=== PATIENT | male | born 1975 | race Two or more races ===

== ENCOUNTER 2016-07-06 12:57 | Emergency (ER) | payer OTHER ==
[2016-07-06 13:08] VITALS: BP 129/75; PULSE 73; TEMP 97.9; BMI 22.5
[2016-07-06] MEDS ORDERED: KETOROLAC TROMETHAMINE 60 MG/2 ML VIAL IM ONE (14:34)
[2016-07-06] MEDS ORDERED: KETOROLAC TROMETHAMINE 60 MG/2 ML VIAL ONE (14:38)
--- NOTE | 2016-07-06 14:51 | PDOC ---
History of Present Illness - General Chief Complaint: Back Pain Stated Complaint: BACK PAIN Time Seen by Provider: 07/06/16 14:12 - History of Present Illness Initial Comments: 07/06/16 14:35 CHIEF COMPLAINT: back pain HISTORY OF PRESENT ILLNESS: 40 yo M with recent hx of pneumonia [facility] to [facility] with new onset back pain x 1 day. 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 Patient reports "just getting over pneumonia for the last month" and that he was coughing "all the time." He denies any loss of bowel or bladder function, any urinary changes, loss of sensation or tingling to extremities. No recent travel or sick contacts. PAST MEDICAL HISTORY: Denies past medical history FAMILY HISTORY: Denies SOCIAL HISTORY: Lives at home with family. 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 Current smoker, 8-10 cigs daily. 1-2 beers nightly. Denies illicit drug use. SURGICAL HISTORY: Denies ALLERGIES: No known drug allergies REVIEW OF SYSTEMS General/Constitutional: Denies fever or chills. Denies weakness, weight change. HEENT: Denies change in vision. Denies ear pain or discharge. Denies sore throat. Cardiovascular: Denies chest pain or shortness of breath. Respiratory: Denies cough, wheezing, or hemoptysis. Gastrointestinal: Denies nausea, vomiting, diarrhea or constipation. Denies rectal bleeding. Genitourinary: Denies dysuria, frequency, or change in urination. Musculoskeletal: Back pain. Skin and breasts: Denies rash or easy bruising. PHYSICAL EXAM General Appearance: Well-appearing, appropriately dressed. No apparent distress , no intoxication. HEENT: EOMI, PERRLA. Neck: No midline tenderness to cervical spine. Supple. Trachea midline. No tenderness, rigidity. Respiratory/Chest: Lungs CTAB. Cardiovascular: RRR. S1, S2. Vascular Pulses: Dorsalis-Pedis (R): 2+, Dorsalis-Pedis (L): 2+ Gastrointestinal/Abdominal: Normal bowel sounds. Abdomen soft, non-distended. Musculoskeletal/Extremities: Tenderness to left middle back, worse on palpation and with movement of left arm. No midline tenderness to lumbar or thoracic spine. Pelvis Stable. No CVA tenderness. No tenderness to extremities, pedal edema, swelling, erythema or deformity. Integumentary: Appropriate color, dry, warm. No cyanosis, erythema, jaundice or rash Neurologic: press tender II-XII intact. Fully oriented, alert. Appropriate mood/affect. Motor strength 5/5. No appreciable EOM palsy, facial droop or sensory deficit. Past History - Past Medical History Allergies/Adverse Reactions: Allergies Allergy/AdvReac Type Severity Reaction Status Date / Time No Known Allergies Allergy Verified 07/06/16 13:05 Home Medications: Ambulatory Orders Diazepam [Valium] 5 mg PO Q8H PRN #9 tablet MDD 3 tabs 07/06/16 Naproxen 250 mg PO BID #14 tablet 07/06/16 Suicide Attempt (Hx): No Other medical history: denies - Psycho/Social/Smoking Cessation Hx Suicidal Ideation: No Smoking Status: Yes Smoking History: Current every day smoker Number of Cigarettes Smoked Daily: 10 Information on smoking cessation initiated: No 'Breaking Loose' booklet given: 06/14/15 Hx Alcohol Use: No Drug/Substance Use Hx: No Substance Use Type: None *Physical Exam - Vital Signs Last Vital Signs Temp Pulse Resp BP Pulse Ox 97.9 F 73 16 129/75 99 07/06/16 13:05 07/06/16 13:05 07/06/16 13:05 07/06/16 13:05 07/06/16 13:05 Medical Decision Making - Medical Decision Making 07/06/16 14:54 40 yo M with no significant PMH presents [facility] with new onset left back pain History and clinical presentation consistent with muscle spasm. -60 mg Toradol IM Patient states he would like to go back to work and requests not to take medication that will make him drowsy at this time. -250 mg Naproxen bid -5 mg Valim PRN pain Advised patient to take medication as prescribed and follow up with orthopedics within the next week for further evaluation and possible physical therapy or MRI. Advised patient of signs and symptoms for return to ED. Patient verbalized understanding and agrees to plan. *DC/Admit/Observation/Transfer Diagnosis at time of Disposition: Back muscle spasm - Discharge Dispostion Disposition: HOME Condition at time of disposition: Stable Admit: No - Prescriptions Prescriptions: Naproxen 250 mg PO BID #14 tablet Diazepam [Valium] 5 mg PO Q8H PRN #9 tablet MDD 3 tabs PRN Reason: Back Pain - Referrals Referrals: Kylah Robb MD [Primary Care Provider] - Glen Dasilva MD [Staff Physician] - - Patient Instructions Printed Discharge Instructions: DI for Low Back Pain Additional Instructions: Please take medications as prescribed. Please follow-up with orthopedics as discussed. If you experience any sudden severe pain, loss of sensation, numbness or tingling to legs, bowel or bladder dysfunction, nausea, vomiting, diarrhea or any new or worsening symptoms please return to the
== END 2016-07-06 15:13 | disposition home or self-care (01) ==
LOC: JER 12:57
PROC: 3E0233Z Introduction of Anti-inflammatory into Muscle, Percutaneous Approach (ICD-10-PCS; principal; 2016-07-06)
DX: M62.830 Muscle spasm of back (principal); F17.210 Nicotine dependence, cigarettes, uncomplicated
CPT/HCPCS: 99281-25

== ENCOUNTER 2016-11-07 17:57 | Emergency (ER) | payer OTHER ==
--- NOTE | 2016-11-07 18:06 | PDOC ---
Rapid Medical Evaluation Time Seen by Provider: 11/07/16 18:06 Medical Evaluation: Allergies Allergy/AdvReac Type Severity Reaction Status Date / Time No Known Allergies Allergy Verified 07/06/16 13:05 11/07/16 18:06 Healthy 41 year old male presenting with right hand pain since yesterday after dog started running and leash wrapped around hand, causing hyperextension of fifth digit. -Right hand xray -To FT for further evaluation
[2016-11-07] MEDS ORDERED: IBUPROFEN 600 MG TABLET (FP) PO ONE (18:08)
[2016-11-07 18:09] VITALS: BP 134/75; PULSE 74; TEMP 98; BMI 22.0
--- NOTE | 2016-11-07 19:02 | PDOC ---
History of Present Illness - General Chief Complaint: Injury Stated Complaint: HAND INJURY Time Seen by Provider: 11/07/16 18:06 History Source: Patient Exam Limitations: No Limitations - History of Present Illness Initial Comments: 11/07/16 19:01 41 yr male with injury to right fifth digit yesterday. Past History - Past Medical History Allergies/Adverse Reactions: Allergies Allergy/AdvReac Type Severity Reaction Status Date / Time No Known Allergies Allergy Verified 11/07/16 18:06 Home Medications: Ambulatory Orders Diazepam [Valium] 5 mg PO Q8H PRN #9 tablet MDD 3 tabs 07/06/16 Naproxen 250 mg PO BID #14 tablet 07/06/16 Suicide Attempt (Hx): No Other medical history: NONE - Psycho/Social/Smoking Cessation Hx Suicidal Ideation: No Smoking Status: Yes Smoking History: Current every day smoker Have you smoked in the past 12 months: Yes Number of Cigarettes Smoked Daily: 4 Information on smoking cessation initiated: Yes 'Breaking Loose' booklet given: 11/07/16 Hx Alcohol Use: Yes Drug/Substance Use Hx: Yes (BRIDGET) Substance Use Type: None *Physical Exam - Vital Signs Last Vital Signs Temp Pulse Resp BP Pulse Ox 98.0 F 74 18 134/75 100 11/07/16 18:07 11/07/16 18:07 11/07/16 18:07 11/07/16 18:07 11/07/16 18:07 ED Treatment Course - Medications Given in the ED: ED Medications Discontinued Medications Generic Name Dose Route Start Last Admin Trade Name Freq PRN Reason Stop Dose Admin Ibuprofen 600 mg 11/07/16 18:08 11/07/16 18:12 Motrin - PO 11/07/16 18:09 600 mg ONCE ONE Administration *DC/Admit/Observation/Transfer Diagnosis at time of Disposition: Finger injury Qualifiers: Encounter type: initial encounter Laterality: right Qualified Code(s): S69.91XA - Unspecified injury of right wrist, hand and finger(s), initial encounter - Discharge Dispostion Disposition: HOME Condition at time of disposition: Good - Referrals Referrals: Kylah Robb MD [Primary Care Provider] - Hesham Carroll MD [Staff Physician] - - Patient Instructions Additional Instructions: keep the finger serafin taped together at all times for the next 3-4 days follow with the orthopedist if pain worsens or persists take motrin as needed for any pain
--- NOTE | 2016-11-07 19:53 | PDOC ---
History of Present Illness - General Chief Complaint: Injury Stated Complaint: HAND INJURY Time Seen by Provider: 11/07/16 18:06 History Source: Patient - History of Present Illness Occurred: reports: yesterday Upper Extremity Pain Location: right: 4th finger, 5th finger Past History - Past Medical History Allergies/Adverse Reactions: Allergies Allergy/AdvReac Type Severity Reaction Status Date / Time No Known Allergies Allergy Verified 11/07/16 18:06 Home Medications: Ambulatory Orders Diazepam [Valium] 5 mg PO Q8H PRN #9 tablet MDD 3 tabs 07/06/16 Naproxen 250 mg PO BID #14 tablet 07/06/16 Suicide Attempt (Hx): No Other medical history: NONE - Psycho/Social/Smoking Cessation Hx Suicidal Ideation: No Smoking Status: Yes Smoking History: Current every day smoker Have you smoked in the past 12 months: Yes Number of Cigarettes Smoked Daily: 4 Information on smoking cessation initiated: Yes 'Breaking Loose' booklet given: 11/07/16 Hx Alcohol Use: Yes Drug/Substance Use Hx: Yes (BRIDGET) Substance Use Type: None Review of Systems - Review of Systems Musculoskeletal: Yes: Joint Pain, Joint Swelling *Physical Exam - Vital Signs Last Vital Signs Temp Pulse Resp BP Pulse Ox 98.0 F 74 18 134/75 100 11/07/16 18:07 11/07/16 18:07 11/07/16 18:07 11/07/16 18:07 11/07/16 18:07 - Physical Exam General Appearance: Yes: Appropriately Dressed. No: Apparent Distress HEENT: positive: Normal Voice Neck: positive: Supple Respiratory/Chest: negative: Respiratory Distress Musculoskeletal: positive: Other Extremity: positive: Swelling (mild swelling over R 4th and 5th MCP, 5th>4th, no deformity otherwise) Integumentary: positive: Dry, Warm Neurologic: positive: Fully Oriented, Alert, Normal Mood/Affect ED Treatment Course - Medications Given in the ED: ED Medications Discontinued Medications Generic Name Dose Route Start Last Admin Trade Name Freq PRN Reason Stop Dose Admin Ibuprofen 600 mg 11/07/16 18:08 11/07/16 18:12 Motrin - PO 11/07/16 18:09 600 mg ONCE ONE Administration Medical Decision Making - Medical Decision Making 11/07/16 19:51 41-year-old male, no significant history, here with right fourth and fifth digit pain and swelling status post injury yesterday. Patient states while walking his dog, leash got caught between finger web of right fourth and fifth digit, causing hyperextension of R 5th digit See exam M/l sprain R/o fx -pain control in ED 11/07/16 19:53 11/07/16 19:55 XR neg for fx. Daryn bandage placed and dc w/ otc pain meds 11/07/16 19:57 *DC/Admit/Observation/Transfer Diagnosis at time of Disposition: Finger sprain Qualifiers: Encounter type: initial encounter Finger: ring finger Sprain of finger site: metacarpophalangeal joint Laterality: right Qualified Code(s): S63.654A - Sprain of metacarpophalangeal joint of right ring finger, initial encounter - Discharge Dispostion Disposition: HOME Condition at time of disposition: Good - Referrals Referrals: Kylah Robb MD [Primary Care Provider] - - Patient Instructions Printed Discharge Instructions: Finger Sprain Additional Instructions: Keep DARYN in place for comfort and take Motrin as needed for pain - Post Discharge Activity
== END 2016-11-07 20:10 | disposition home or self-care (01) ==
LOC: JERFT 17:57
DX: S63.654A Sprain of metacarpophalangeal joint of right ring finger, initial encounter (principal); F17.210 Nicotine dependence, cigarettes, uncomplicated; X58.XXXA Exposure to other specified factors, initial encounter; Y93.K1 Activity, walking an animal; Y92.410 Unspecified street and highway as the place of occurrence of the external cause
CPT/HCPCS: 73130-TC-RT; 99281-25

== ENCOUNTER 2017-05-11 15:22 | Emergency (ER) | payer OTHER ==
[2017-05-11 15:26] VITALS: BP 127/68; PULSE 81; TEMP 97.5; BMI 21.2
[2017-05-11] MEDS ORDERED: KETOROLAC TROMETHAMINE 60 MG/2 ML VIAL IM ONE (16:23)
[2017-05-11] MEDS ORDERED: KETOROLAC TROMETHAMINE 60 MG/2 ML VIAL ONE (16:24)
--- NOTE | 2017-05-11 16:33 | PDOC ---
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 Patient's job called emergency department requesting patient to be drug tested. There is no formal protocol sent with patient request from a physician for drug testing. Patient is not a threat to self or others does not appear to be under the influence of any drugs or alcohol. Ambulatory to the ER. REVIEW OF SYSTEMS: GENERAL: Afebrile, denies any weakness RESPIRATORY: No cough, wheezing, or hemoptysis. CARDIAC: No chest pain or shortness of breath MUSCULOSKELETAL: Pain to generalized upper back. No point tenderness. ] SKIN : No erythema, no bruising, no deformity. GI/: Denies any abdominal pain, no urinary difficulty, incontinence or urinary retention. RECTAL: Denies any difficulty this A.m. NEUROLOGICAL: Denies any numbness or tingling. No neurosensory deficits. PHYSICAL EXAM: GENERAL: The patient is awake, alert, and fully oriented, in no acute distress. RESPIRATORY: Lungs clear bilaterally, no rhonchi wheezes or crackles CARDIAC: S1-S2 audible, no murmur rub or gallop MUSCULOSKELETAL: Pain to generalized lower back, nonradiating, no tingling or sensory deficit. Less than 2 second cap refill, +4 popliteal and pedal pulses. GI/: Abdomen soft, nontender, nondistended. No rebound tenderness. No masses palpable. MUSCULOSKELETAL: No spinal point tenderness. Generalized upper back pain and spasm. Normal reflexive and no deficits to sensation or strength. RECTAL: [Deferred patient with no neurological findings] SKIN: Warm, Dry, normal turgor, no erythema, no edema no bruising. Past History - Past Medical History Allergies/Adverse Reactions: Allergies Allergy/AdvReac Type Severity Reaction Status Date / Time No Known Allergies Allergy Verified 05/11/17 15:24 Home Medications: Ambulatory Orders Naproxen [Naprosyn -] 500 mg PO BID #14 tablet 05/11/17 COPD: No Other medical history: BACK PROBLEMS - Suicide/Smoking/Psychosocial Hx Smoking Status: Yes Smoking History: Current every day smoker Have you smoked in the past 12 months: Yes Number of Cigarettes Smoked Daily: 4 Information on smoking cessation initiated: Yes 'Breaking Loose' booklet given: 05/11/17 Hx Alcohol Use: Yes Drug/Substance Use Hx: Yes (HX OF BRIDGET) Substance Use Type: Alcohol, Heroin, Marijuana *Physical Exam - Vital Signs Last Vital Signs Temp Pulse Resp BP Pulse Ox 97.5 F L 81 18 127/68 100 05/11/17 15:24 05/11/17 15:24 05/11/17 15:24 05/11/17 15:24 05/11/17 15:24 ED Treatment Course - Medications Given in the ED: ED Medications Discontinued Medications Generic Name Dose Route Start Last Admin Trade Name Freq PRN Reason Stop Dose Admin Ketorolac Tromethamine 60 mg 05/11/17 16:23 05/11/17 16:27 Toradol Injection - IM 05/11/17 16:24 60 mg ONCE ONE Administration Medical Decision Making - Medical Decision Making 05/11/17 16:58 A/P: Patient with generalized upper back spasm, no neurosensory deficits, no dermatomal pain. Patient's job requested for patient to be drug tested however they called over the phone with no written consent no prescription from physician. At this time patient is not a threat to self or others does not appear to be under the influence of drugs or alcohol. Patient's injury does not warrant drug testing at this time. Patient will follow-up at his job for further testing. Toradol 60 mg IM 1 given Patient states he feels 100% better after Toradol injection. We'll DC patient home with Naprosyn, strict follow-up at his job. *DC/Admit/Observation/Transfer Diagnosis at time of Disposition: Back muscle spasm - Discharge Dispostion Disposition: HOME Condition at time of disposition: Good Admit: No - Prescriptions Prescriptions: Naproxen [Naprosyn -] 500 mg PO BID #14 tablet - Referrals Referrals: Glen Dasilva MD [Staff Physician] - - Patient Instructions Printed Discharge Instructions: DI for Back Spasm Additional Instructions: Toradol was given to you while in the ER. Follow up with orthopedics if pain persists in one week. No heavy lifting greater then 10 pounds until pain resolves. - Post Discharge Activity Forms/Work/School Notes: Back to Work
== END 2017-05-11 17:05 | disposition home or self-care (01) ==
LOC: JERFT 15:22
PROC: 3E0233Z Introduction of Anti-inflammatory into Muscle, Percutaneous Approach (ICD-10-PCS; principal; 2017-05-11)
DX: M62.830 Muscle spasm of back (principal); X58.XXXA Exposure to other specified factors, initial encounter; Y93.89 Activity, other specified; Y92.9 Unspecified place or not applicable; Y99.0 Civilian activity done for income or pay; F17.210 Nicotine dependence, cigarettes, uncomplicated
CPT/HCPCS: 99281-25

== ENCOUNTER 2018-12-29 18:49 | Emergency (ER) | payer OTHER | END 2018-12-29 19:26 | disposition home or self-care (01) | LOC: JER 18:49 → JERFT 19:26 ==